=== PATIENT | male | born 1975 | race Caucasian/White ===

== ENCOUNTER 2018-08-27 18:45 | Emergency (ER) | payer OTHER, SELFPAY ==
[2018-08-27 18:46] VITALS: BP 163/82; PULSE 102; RESP 18; TEMP 37.1; O2SAT 99; BMI 34.4
--- NOTE | 2018-08-27 19:21 | ED.RN ---
PT STATES HES HAD ABDOMINAL DISCOMFORT SINCE SATURDAY, PT STATES HE HAS NOT HAD ANY NAUSEA OR DIARRHEA BUT FEELS ACHY.
--- NOTE | 2018-08-27 19:48 | CT_ITS ---
STUDY: CT ABDOMEN AND PELVIS WITH CONTRAST REASON FOR EXAM: Male, 42 years old. Elevated white count, abdominal pain RADIATION DOSAGE (If Supplied By Facility): CTDIvol = ( 18.62 ) mGy, DLP = ( 1295.40 ) mGycm TECHNIQUE: Transaxial images were obtained from the dome of the diaphragm to the symphysis pubis without oral contrast. 100ML IV/Oral Isovue 300 was administered. Sagittal and coronal images were reconstructed. Individualized dose optimization techniques were used for this CT. COMPARISON: None. FINDINGS: The visualized lung bases are unremarkable. The visualized portions of the heart are within normal limits. Normal liver. Normal gallbladder and extrahepatic biliary system. Normal spleen. Normal pancreas. Normal bilateral adrenal glands. Normal right kidney. Normal left kidney. Normal visualized stomach. Normal small intestine. Mild diverticulosis of the colon. There is wall thickening and inflammation at the mid sigmoid level compatible with diverticulitis. The appendix is visualized and appears normal. Normal abdominal aorta. Normal inferior vena cava. Normal retroperitoneum. Normal urinary bladder. Normal abdominal wall. Normal osseous structures. Small left paramedian disc protrusion at L4-5. CT/Abdomen/Pelvis WITH Contrast IMPRESSION: Colonic diverticulosis with sigmoid diverticulitis. Electronically Signed: Isaias Mendez DO at 22:27 EDT Tel [phone], Service support ,
[2018-08-27 20:02] LABS: Bacteria 0 SEEN /hpf (None Seen); Mucous, Urine 0 SEEN /hpf (<or=2+); Red Blood Cells-Urine 0 SEEN /hpf (0-5); Squamous Epithelial Cells - UA 0 SEEN /hpf (0-5); White Blood Cells 0 SEEN /hpf (0-5)
[2018-08-27 20:04] LABS: Color, Urine Yellow (Yellow); Glucose, Dipstick Normal (Normal); Ketone-Dipstick Negative (Negative); Leukocyte Esterase-Dipstick Negative /ul (Negative); Nitrite-Dipstick Negative (Negative); Occult Blood-Urine Negative /ul (Negative); Protein-Dipstick Negative (Negative); Specific Gravity, Urine 1.005 (1.002-1.030); Urine Bilirubin Dipstick Negative (Negative); Urine Clarity Clear (Clear); Urine Urobilinogen Normal (Normal)
[2018-08-27 20:07] LABS: Absolute Lymphocyte Count 1.99 X10^3/ul (0.83-4.51); Absolute Neutrophil Count 9.7 X10^3/uL (2.0-7.7); Basophil# 0.02 X10^3/uL; Basophil% 0.1 % (0-1); Eosinophil# 0.22 X10^3/uL; Eosinophils% 1.6 % (0-5); Hematocrit 45.8 % (40-54); Hemoglobin 15.4 g/dl (13.0-16.5); Lymphocyte # 1.99 X10^3/ul (4.0); Lymphocyte % 14.8 % (19-41); Mean Corp Hgb Conc 33.6 g/gl (32-36); Mean Corpuscular Hgb 28.9 pg (27.0-32.0); Mean Corpuscular Volume 85.9 fL (80-94); Mean Platelet Vol. 9.9 fl (6.2-12.0); Monocyte# 1.48 X10^3/uL; Neutrophil # 9.72 X10^3/uL (2.7-7.7); Neutrophil % 72.4 % (47-70); Platelet Count 244 K/mm3 (150-450); RBC Distribution Width CV 13.7 % (11.6-14.6); RBC Distribution Width SD 42.6 fl (35.1-43.9); Red Blood Count 5.33 M/mm3 (4.6-6.2); White Blood Count 13.5 K/mm3 (4.4-11.0)
[2018-08-27 20:09] LABS: POSITIVE COUNT NO; POSITIVE DIFFERENTIAL NO; POSITIVE MORPHOLOGY NO
[2018-08-27 20:26] LABS: AST(SGOT) 24 U/L (15-37); Alanine Aminotransfer ALT/SGPT 41 U/L (16-61); Alkaline Phosphatase 70 U/L (45-117); Anion Gap 4 (5-15); BUN 11 mg/dL (7-18); BUN/Creat Ratio 10.4 RATIO (10-20); Calcium,Total 8.6 mg/dL (8.5-10.1); Chloride 103 mmol/L (98-107); Creatinine, Serum 1.06 mg/dL (0.70-1.30); EST Glomerular Filtration Rate 82 mL/min (>60); Est Glom Filt Rate - Afr Amer 99 mL/min (>60); Estimated Creatinine Clearance 95.65 ml/min; Glucose 92 mg/dL (74-106); Lipase 81 U/L (73-393); Potassium 3.9 mmol/L (3.5-5.1); Sodium Level 137 mmol/L (136-145)
[2018-08-27] MEDS: 0.9% Normal Saline 1,000 ML 125 ML IV (20:30)
[2018-08-27 22:11] VITALS: BP 135/85; PULSE 77; RESP 15; O2SAT 98
--- NOTE | 2018-08-27 22:36 | ED.DCSUM_ITS ---
- ER Visit Summary Date of Service: 08/27/18 Chief Complaint: [Abdominal pain] History of Present Illness: The patient is a 42 M [presents with abdominal pain that started 2 days ago. Patient states that at times he feels flushed. He describes the pain is more suprapubic. Patient had no fever. He has had a little bit of urinary frequency. Patient has prior history of diverticulitis but this feels a little bit different. Patient states pain is worse with certain movement. Food does not seem to affect it. He denies any blood in his stool or black tarry stools.] Physical Examination: [HEENT-PERRLA, EOMI. Cranial nerves II through XII grossly intact. TMs clear. Mucous membranes moist. No adenopathy. Cardiovascular-regular rate and rhythm without murmur or ectopy Lungs-clear to auscultation, chest wall stable without crepitus or subcu emphysema Abdomen-normoactive bowel sounds, soft with tenderness palpation over the suprapubic region. Patient has some mild guarding. There is no rebound, rigidity, or perineal signs. Extremities-intact ?4, normal range of motion, normal pulses, atraumatic] Test Results: [CBC with differential showed a slightly elevated white blood cell count of 13.5, hemoglobin 15, hematocrit 46, platelets 244. Chemistries were unremarkable. Urinalysis was normal. CT scan of the abdomen pelvis with IV and p.o. contrast showed sigmoid diverticulitis without evidence of perforation or abscess] Emergency Department Course and Treatment: [Patient was given Cipro and Flagyl. He denies anything for pain.] Treatment Plan: [Patient will be given a prescription for Cipro and Flagyl as well as [place]] Disposition: [Discharged home in stable condition. Patient advised to return if worsening pain, fever, bloody stools, or condition should worsen anyway.] Patient to follow-up with his surgeon within the next 3-5 days. Impression: [Acute sigmoid diverticulitis] This note was generated with [employer] dictation software. It may contain incorrect words, spelling, and punctuation that were not noted in review of the chart prior to signing ED Disposition - Plan for ED Patient: Referrals: William Arambula MD [Primary Care Provider] -
--- NOTE | 2018-08-27 22:37 | DCINST.ED_ITS ---
ED Disposition - Plan for ED Patient: Instructions: ED Diverticulitis Prescriptions: Hydrocodone Bitart/Apap 5-325 [[place] 5MG-325MG] 1 tab PO Q4H PRN PRN 2 Days #10 tab PRN Reason: Pain Metronidazole [Flagyl] 500 mg PO Q8H #30 tab Ciprofloxacin [Cipro] 500 mg PO BID #20 tab Referrals: William Arambula MD [Primary Care Provider] -
[2018-08-27] MEDS: Ciprofloxacin 500 MG Tablet PO (22:45)
[2018-08-27] MEDS: metroNIDAZOLE 500 MG Tablet PO (22:45)
== END 2018-08-27 22:52 | disposition home or self-care (01) ==
LOC: ED 20:10
PROVIDERS: Emergency Provider Emergency Medicine; Family Provider Family Medicine; PCP Family Medicine
DX: K57.32 Diverticulitis of large intestine without perforation or abscess without bleeding (principal)
CPT/HCPCS: 74177; 80053; 81001; 83690; 85025; 96360; 96361; 99284; J7030; Q9967; A4216

== ENCOUNTER 2023-04-07 18:17 | Emergency (ER) | payer BC, SELFPAY ==
[2023-04-07 18:18] VITALS: BP 149/102; PULSE 118; RESP 22; TEMP 36.2; O2SAT 94; BMI 37.1
[2023-04-07 18:35] VITALS: O2SAT 97
[2023-04-07 18:49] VITALS: BP 136/85; PULSE 108; RESP 21; TEMP 36; O2SAT 93
--- NOTE | 2023-04-07 18:52 | EDS_ITS ---
HPI History of Present Illness Chief Complaint: Shortness of Breath Informant: patient Onset/Context/Timing Onset: Days Context: Gradual Onset Narrative Narrative: Patient presents secondary to increased shortness of breath. States he had a cold about a month ago and seemed to get better. A week ago he developed a raspiness in his chest. He was seen at urgent care 1 week ago and given albuterol MDI, Mucinex, and Augmentin. He states that he has worsened throughout the week and last evening and today noted increased cough and slight hoarse voice. He denies chest pain. He states this afternoon he used his inhaler and only had improvement in his shortness of breath and wheezing for about a half an hour before it recurred. 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 The most recent time he was given prednisone he developed hives on his hands and has not taken it since. PFSH PFSH Medical History no medical history no medical history Home Medications calcium polycarbophil 625 mg tablet (Fiber-Tabs) 1,250 mg PO DAILY 08/27/18 [History Last Taken Unknown] fish oil-dha-epa 1,200 mg-144 mg-216 mg capsule 1 ea PO DAILY 08/27/18 [History Last Taken Unknown] metronidazole 500 mg tablet 500 mg PO Q8H #30 tabs 08/27/18 [Rx Last Taken Unknown] multivitamin with minerals (Multiple Vitamin-Minerals tablet) 1 ea PO DAILY 08/27/18 [History Last Taken Unknown] albuterol sulfate 90 mcg/actuation aerosol inhaler 1 puff inhalation Q4H PRN wheezing 04/07/23 [History Last Taken Unknown] amoxicillin 875 mg-potassium clavulanate 125 mg tablet 1 tab PO BID 04/07/23 [History Last Taken Unknown] benzonatate 100 mg capsule 100 mg PO TID PRN cough 04/07/23 [History Last Taken Unknown] Allergy/AdvReac Type Severity Reaction Status Date / Time prednisone Allergy Hives Verified 04/07/23 18:18 Sulfa (Sulfonamide Allergy Rash Verified 04/07/23 18:18 Antibiotics) Surgical History no surgical history Social History Smoking Status: Never smoker ROS ROS ED Constitutional Constitutional ED: Denies chills or fever(s) Eyes Eyes: Denies change in vision or discharge from eye(s) ENT ENT ED: Denies discharge from eye(s), rhinorrhea or sore throat Cardiovascular Cardiovascular: Denies chest pain or palpitations Respiratory/Chest Respiratory/Chest: Reports cough and dyspnea Gastrointestinal Gastrointestinal: Denies abdominal pain, nausea or vomiting Genitourinary Genitourinary ED: Denies dysuria Musculoskeletal Musculoskeletal: Denies back pain or extremity pain Integumentary Denies Abrasions or rash Neurologic Neurologic: Denies headache(s) or weakness Psychiatric Psychiatric: Denies anxiety or depression Allergic/Immunologic Allergic/Immunologic ED: Denies lip swelling or urticaria EXAM Physical Exam Const Vital Signs: 04/07/23 18:18 04/07/23 18:35 04/07/23 18:49 Temperature 97.2 F L 96.8 F L Temperature Source Temporal Temporal Pulse Rate 118 H 108 H Respiratory Rate 22 H 21 H Blood Pressure 149/102 H 136/85 H Blood Pressure Mean 117 102 Pulse Ox 94 93 Oxygen Delivery Method Room Air Room Air Room Air 04/07/23 18:49 04/07/23 19:02 Temperature Temperature Source Pulse Rate 108 H 109 H Respiratory Rate 21 H 16 Blood Pressure 136/85 H Blood Pressure Mean 102 Pulse Ox 93 Oxygen Delivery Method Room Air Positive well nourished and well developed General Appearance ED: well developed HEENT Reports moist mucous membranes Chest Wall inspection of chest normal and palpation of chest normal Resp Resp Narrative: Mild expiratory wheezes bilaterally. No rhonchi. Cardio regular rhythm Rate: tachycardic GI non-tender Palpation: soft Extremity normal to inspection Neuro oriented x3 and no sensory deficits noted Motor Exam: strength 5/5 throughout Psych mental status grossly normal Skin no rashes or lesions noted MDM MDM MDM Narrative Medical decision making narrative: Swab for COVID and influenza will be obtained. Chest x-ray obtained to evaluate for acute lung pathology, cardiac size, or mediastinal abnormality. Patient be given DuoNeb along with albuterol aerosols. Radiography Chest X-Ray - ED: 1 View, Read by ED Physician, Normal, Heart, Lungs and Mediastinum Diagnostic Testing: Clinical Impression(s) from Imaging Studies Chest X-Ray 04/07/23 19:15 IMPRESSION: No radiographic evidence of acute cardiopulmonary disease. Electronically Signed: Andres Zaldivar MD at 19:43 EST Reading Location ID and State: [facility] / [place] , Service support , Treatment and Re-Evaluation :: Portable chest x-ray per my interpretation was no focal infiltrate. Radiology interpretation reviewed and agrees. COVID and influenza test is negative. After breathing treatments patient reports improvement in his breathing. Lungs are clear with only scant end expiratory wheeze. He has albuterol at home to use along with his other medications he been prescribed. He is unable to take prednisone. I will get him a spacer to use and we discussed appropriate dosing of his albuterol inhaler to help control his symptoms better. Return instructions provided. Discharge Plan Triage Chief Complaint: Shortness of Breath ED Provider: Karina Rodriguez Dx/Rx/DC Orders Clinical Impression: URI (upper respiratory infection), Bronchospasm Instructions: ED Bronchitis with Wheezing (Adult) Prescriptions: No Action calcium polycarbophil [Fiber-Tabs] 625 MG tablet 1,250 mg PO DAILY multivitamin with minerals [Multiple Vitamin-Minerals] 1 EACH tablet 1 ea PO DAILY fish oil-dha-epa 1 EACH capsule 1 ea PO DAILY metronidazole 500 MG tablet 500 mg PO Q8H Qty: 30 0RF benzonatate 100 mg capsule 100 mg PO TID PRN (Reason: cough) Patient Comments: SWALLOW WHOLE TAKE 1 CAPSULE 3 TIMES A DAY NEEDED *DO NOT BREAK CHEW, DISSOLVE, CUT, OR CRUSH* albuterol sulfate 90 mcg/actuation HFA aerosol inhaler 1 puff INHALATION Q4H PRN (Reason: wheezing) Patient Comments: INHALE 1 TO 2 PUFFS EVERY 4 TO 6 HOURS NEEDED FOR WHEEZING FOR UP TO 30 DAYS amoxicillin-pot clavulanate 875-125 mg tablet 1 tab PO BID Patient Comments: TAKE 1 TABLET BY MOUTH TWICE A DAY FOR 10 DAYS Primary Care Provider: William Arambula Referrals: William Arambula MD [Primary Care Provider] - 3-5 Days if not improving Disposition Disposition: Home, Self Care
[2023-04-07] MEDS: Ipratropium/Albuterol Sulfate 3 ML AMPUL.NEB INHALATION (19:01)
[2023-04-07] MEDS: Albuterol 2.5 MG/3 ML VIAL.NEB. INHALATION ×2 (19:01)
[2023-04-07 19:02] VITALS: PULSE 109; RESP 16
--- NOTE | 2023-04-07 19:15 | RAD_ITS ---
EXAM: XR CHEST, 1 VIEW CLINICAL INDICATION: sob TECHNIQUE: Frontal view of the chest. COMPARISON: No relevant prior studies available. FINDINGS: LUNGS AND PLEURAL SPACES: Unremarkable. No consolidation or edema. No pneumothorax. No effusion. HEART: Unremarkable. Cardiac silhouette not enlarged. MEDIASTINUM: Central airways and mediastinal contour are unremarkable. BONES/JOINTS: Unremarkable. SOFT TISSUES: Unremarkable. RAD/Chest 1 View (Portable) IMPRESSION: No radiographic evidence of acute cardiopulmonary disease. Electronically Signed: Andres Zaldivar MD at 19:43 EST ,
[2023-04-07] MEDS: INHALER, ASSIST DEVICES 1 EACH SPACER INHALATION (20:44)
== END 2023-04-07 20:46 | disposition home or self-care (01) ==
PROVIDERS: Emergency Provider Emergency Medicine; PCP Family Medicine; Visit Provider Emergency Medicine
DX: J06.9 Acute upper respiratory infection, unspecified (principal); J98.01 Acute bronchospasm
CPT/HCPCS: 71045; 87428; 94640; 99282